=== PATIENT | male | born 1970 | race Caucasian/White ===

== ENCOUNTER 2020-03-15 12:45 | Emergency (ER) | payer BC, SELFPAY ==
--- NOTE | 2020-03-15 12:58 | PC.NURSE ---
PATIENT TO [facility] FROM REGISTRATION AT THIS TIME
[2020-03-15 13:00] VITALS: BP 176/90; PULSE 61; RESP 20; TEMP 36.8; O2SAT 99; BMI 38.0
--- NOTE | 2020-03-15 13:09 | HMH.EDUTC ---
[facility] – [place] Disposition Clinical Impression: Exposure to COVID-19 virus Disposition: Home, Self-Care Condition on Discharge: Good Instructions: Preventing the Spread of Coronavirus Discharge Instructions Additional Instructions: Please isolate yourself until test results received. Referrals: PCP,No [Primary Care Provider] - Time of Disposition: 13:15 Medical Decision Making - Octavio Inquiry Pt receiving controlled substance: No Orders (Tests/Meds): ORDERS Category Date Time Status Covid-19 Nasal PCR ([facility]) Routine Lab 03/15/20 13:00 Ordered [facility] [place] HPI - General Stated complaint: cough,dizzy Time Seen by Provider: 03/15/20 13:09 - History of Present Illness Provider Complaint: Patient was exposed to COVID19 5-6 days. Has had cough, one episode of dizziness. Denies ear pain, sore throat, loss of taste or smell, no fever, no vomiting or diarrhea. Onset (ago): day(s) (6) Relieving factors: none Exacerbating factors: none Associated symptoms: denies other symptoms Treatments prior to arrival: none [facility] History - Hepatitis A Screen Attestation statement:: This patient has been screened for Hepatitis A risk factors. I have reviewed the patient's past medical history: Yes ROS Obtained: Yes All systems reviewed & no additional complaints - Constitutional Constitutional: Denies body ache, Denies chills, Denies fever(s) - Eyes Eyes: Denies eye discharge - ENT Ears, Nose, Mouth, and Throat: Denies otalgia, Denies sinus pain, Denies sore throat - Cardiovascular Cardiovascular: Denies dyspnea - Respiratory Respiratory: Yes cough Physical Exam - General General appearance: alert, in no apparent distress - Head Head exam: atraumatic, normocephalic, normal inspection - Eye Eye exam: Present: normal appearance, PERRL, EOMI - ENT ENT exam: Present: normal exam, normal oropharynx, mucous membranes moist, TM's normal bilaterally, normal external ear exam - Neck Neck exam: Present: normal inspection, full ROM, trachea midline. Absent: meningismus, lymphadenopathy - Chest Chest inspection: Present: normal inspection, symmetric chest wall rise. Absent: tenderness - Respiratory Respiratory exam: Present: normal lung sounds bilaterally. Absent: respiratory distress - Cardiovascular Cardiovascular exam: Present: regular rate, normal rhythm. Absent: JVD - Abdominal Exam Abdominal exam: Present: soft, normal bowel sounds. Absent: distention, tenderness, guarding - Extremities Exam Extremities exam: Present: normal inspection, full ROM, normal capillary refill. Absent: calf tenderness - Back Exam Back exam: Present: normal inspection. Absent: tenderness - Neurological Exam Neurological exam: Present: alert, oriented X3 - Psychiatric Psychiatric exam: Present: normal affect, normal mood - Skin Skin exam: Present: warm, dry, intact, normal color - Lymphatic Lymphatic Findings: no adenopathy
[2020-03-15 13:26] VITALS: BP 176/90; PULSE 61; RESP 20; TEMP 36.8; O2SAT 99
[2020-03-16 15:28] LABS: Covid-19 Nasal PCR Sendout Lex POSITIVE
--- NOTE | 2020-03-16 15:44 | PC.NURSE ---
PATIENT NOTIFIED OF POSITIVE COVID RESULT AT THIS TIME
== END 2020-03-15 13:28 | disposition home or self-care (01) ==
PROVIDERS: Emergency Provider Physician Assistant
DX: U07.1 COVID-19 (principal)
CPT/HCPCS: 99201; U0004